=== PATIENT | female | born 1995 | race Caucasian/White ===

== ENCOUNTER 2017-04-23 18:05 | Outpatient (CLI) | payer OTHER | END 2017-04-23 21:06 | disposition home or self-care (01) | LOC: GENOP 18:05 | DX: O99.89 Other specified diseases and conditions complicating pregnancy, childbirth and the puerperium (principal); R10.9 Unspecified abdominal pain; Z3A.36 36 weeks gestation of pregnancy | CPT/HCPCS: G0463 ==